=== PATIENT | female | born 1960 | race Caucasian/White ===

== ENCOUNTER 2023-04-27 09:40 | Outpatient (CLI) | payer BC | END 2023-04-27 09:41 | disposition home or self-care (01) | LOC: CSHCT 09:40 | PROVIDERS: ATTEND Internal Medicine | DX: R05.3 Chronic cough (principal); S22.41XD Multiple fractures of ribs, right side, subsequent encounter for fracture with routine healing | CPT/HCPCS: 71250 ==

== ENCOUNTER 2023-07-29 15:01 | Outpatient (CLI) | payer BC | END 2023-07-29 15:02 | disposition home or self-care (01) | LOC: CSHMRI 15:01 | PROVIDERS: ATTEND Specialist | DX: M51.17 Intervertebral disc disorders with radiculopathy, lumbosacral region (principal); M41.86 Other forms of scoliosis, lumbar region; M47.816 Spondylosis without myelopathy or radiculopathy, lumbar region; M47.817 Spondylosis without myelopathy or radiculopathy, lumbosacral region | CPT/HCPCS: 72100; 72148 ==

== ENCOUNTER 2024-03-30 09:20 | Outpatient (CLI) | payer BC | END 2024-03-30 09:21 | disposition home or self-care (01) | LOC: CSHMAMMO 09:20 | PROVIDERS: ATTEND Nurse Practitioner Family | DX: Z78.0 Asymptomatic menopausal state (principal); M81.0 Age-related osteoporosis without current pathological fracture; M85.851 Other specified disorders of bone density and structure, right thigh; M85.852 Other specified disorders of bone density and structure, left thigh | CPT/HCPCS: 77080 ==

== ENCOUNTER 2025-07-07 09:19 | Emergency (ER) | payer BC ==
[2025-07-07] MEDS ORDERED: Ondansetron PF 4 MG/2 ML Vial ONE (10:01)
[2025-07-07] MEDS ORDERED: Aspirin Chewable 81 MG TAB ONE (10:01)
[2025-07-07] MEDS ORDERED: Mag-Al 1200 mg/1200 mg/30 ML UDCUP ONE (10:02)
[2025-07-07 10:04] LABS: #Basophils 0.04 10x3/uL (0.0-0.2); #Eosinophils 0.32 10x3/uL (0.0-0.5); #Monocytes 0.52 10x3/uL (0.0-1.1); #Neutrophils 2.88 10x3/uL (1.5-8.4); %Basophils 0.8 % (0.0-2.0); %Eosinophils 6.2 % (0.0-6.0); %Lymphocytes 26.5 % (18.0-47.0); %Monocytes 10.1 % (0.0-10.0); %Neutrophils 56.2 % (40.0-75.0); Hematocrit 43.9 % (34.9-44.5); Hemoglobin 14.8 g/dL (12.0-15.5); Mean Corpuscular Hemoglobin 31.4 pg (27.0-33.0); Mean Corpuscular Volume 93.2 fL (81.6-98.3); Platelet Count 255 10x3/uL (150-450); Red Blood Cell (RBC) Count 4.71 10x6/uL (3.90-5.03); White Blood Cell (WBC) Count 5.13 10x3/uL (3.5-10.5)
[2025-07-07 10:16] LABS: ALT (SGPT) 18 U/L (Less than 34); AST (SGOT) 21 U/L (11-34); Albumin 3.9 g/dL (3.1-4.5); Alkaline Phosphatase 60 U/L (40-110); Anion Gap 11 mmol/L (10-20); BUN (Urea Nitrogen) 19 mg/dL (9.8-20.1); Bilirubin, Total 0.3 mg/dL (0.3-1.2); Calc. Creatinine Clearance 0 mL/min (70-130); Calcium 9.7 mg/dL (7.8-10.44); Carbon Dioxide 27 mmol/L (23-31); Chloride 107 mmol/L (98-107); Globulin 2.9 g/dL (2.4-3.5); Glucose 99 mg/dL (80-115); Lipase 66 U/L (8-78); Potassium 4.6 mmol/L (3.5-5.1); Sodium 140 mmol/L (136-145)
[2025-07-07 10:18] LABS: Troponin I Less than 0.010 ng/mL (< 0.028)
[2025-07-07] MEDS ORDERED: Iopamidol 370 76% 100 ML VIAL ONE (11:50)
[2025-07-07 13:21] LABS: Troponin I Less than 0.010 ng/mL (< 0.028)
== END 2025-07-07 13:50 | disposition home or self-care (01) ==
LOC: CSHERS 09:19
DX: R07.89 Other chest pain (principal); R10.13 Epigastric pain; M54.9 Dorsalgia, unspecified
CPT/HCPCS: 36415; 71275; 74177; 80053; 83690; 84484; 85025; 93005; 94760; J2405; Q9967